=== PATIENT | male | born 1995 | race Caucasian/White ===

== ENCOUNTER 2019-04-14 18:30 | Emergency (ER) | payer OTHER ==
[~2019-04-14] VITALS: Ht 185.4 cm; Wt 79.5 kg
[2019-04-14 18:39] VITALS: BP 139/72; TEMP 97.3
[2019-04-14] MEDS ORDERED: ANUSOL HC CREAM30 GM TP (19:42)
[2019-04-14 20:00] VITALS: PULSE 72
== END 2019-04-14 20:00 | disposition home or self-care (01) ==
LOC: COL.ER 18:30
DX: K64.5 Perianal venous thrombosis (principal)